=== PATIENT | male | born 1955 | race Caucasian/White ===

== ENCOUNTER 2021-10-18 21:03 | Emergency (ER) | payer OTHER ==
[2021-10-18 22:29] LABS: HEMOGLOBIN 14.9 gm/dl (14.0-17.5); RED BLOOD COUNT 4.74 M/UL (4.20-5.50); WHITE BLOOD COUNT 11.8 K/UL (4.5-11.0)
[2021-10-19] MEDS ORDERED: ZOFRAN 4 MG TAB4 MG PO (02:28)
[2021-10-19] MEDS ORDERED: PERCOCET 5/325 T1 EA PO (02:46)
== END 2021-10-19 03:20 | disposition home or self-care (01) ==
LOC: ER1 21:03
PROVIDERS: Physician Assistant Medical
DX: N13.2 Hydronephrosis with renal and ureteral calculous obstruction (principal); E78.5 Hyperlipidemia, unspecified
CPT/HCPCS: 80053; 81001; 85025; 93005; 96374; 96375; 99284; J2270; J2405; Q9967